=== PATIENT | male | born 1990 | race Caucasian/White ===

== ENCOUNTER 2018-12-29 22:40 | Emergency (ER) | payer SELFPAY ==
[~2018-12-29] VITALS: Ht 182.9 cm; Wt 77.3 kg
[2018-12-29 23:08] VITALS: TEMP 98.7
[2018-12-29 23:49] LABS: BASO # 0.1 (0.0-0.2); BASO % 0.3 % (0.0-2.0); GRAN # 16.3 (1.4-6.5); GRAN % 83.9 % (42.2-75.2); HEMATOCRIT 50.9 % (42.0-52.0); HEMOGLOBIN 17.4 g/dl (13.5-18.0); LYMPH # 1.5 (1.2-3.4); LYMPH % 7.8 % (20.0-51.0); MEAN CELL VOLUME 89 fl (80.0-100.0); MEAN CORPUSCULAR HEMOGLOBIN 30 pg (27.0-31.0); MEAN CORPUSCULAR HGB CONC 34 g/dl (33.0-37.0); MONO # 1.5 (0.1-0.6); MONO % 7.6 % (1.7-9.3); PLATELET COUNT 295 K/mm3 (130-400); RED BLOOD COUNT 5.72 M/mm3 (4.20-5.60); REDCELL DISTRIBUTION WIDTH-CV 12.1 % (11.5-14.5)
[2018-12-29 23:59] LABS: ALANINE AMINOTRANSFERASE 7 U/L (21-72); ALBUMIN 5.4 gm/dL (3.5-5.0); ALKALINE PHOSPHATASE 65 U/L (50-136); ANION GAP 16 mmol/L (7-16); AST,SGOT 33 U/L (15-37); BLOOD UREA NITROGEN 30 mg/dL (9-20); CALCIUM 10.5 mg/dL (8.4-10.2); CARBON DIOXIDE 23 mmol/L (22-30); CHLORIDE 100 mmol/L (98-107); CREATININE, serum 1.15 mg/dL (0.66-1.25); GLUCOSE 102 mg/dL (74-106); POTASSIUM 4.4 mmol/L (3.4-5.0); SODIUM 139 mmol/L (137-145); TOTAL PROTEIN 10.2 gm/dL (6.4-8.2)
[2018-12-30] LABS: ACETAMINOPHEN < 10 ug/mL (10-30); ALCOHOL(ethanol),MEDICAL < 10 mg/dL; SALICYLATE < 1.0 mg/dL
[2018-12-30 00:24] LABS: CREATINE KINASE 182 U/L (55-170)
[2018-12-30 00:28] LABS: TSH w REFLEX 0.717 uIU/mL (0.465-4.680)
[2018-12-30 00:36] LABS: TRICYCLIC ANTIDEPRESS URINE NEGATIVE
[2018-12-30 00:46] LABS: COLLECTION METHOD CLEAN CATCH
[2018-12-30 00:56] LABS: MUCOUS Present /lpf; PH 5 (5-8); SQUAMOUS EPITHELIAL None Seen /hpf; URINE APPEARANCE Hazy; URINE BACTERIA None Seen /hpf; URINE BILIRUBIN Negative (NEGATIVE); URINE BLOOD Negative (NEGATIVE); URINE COLOR Amber; URINE GLUCOSE Negative (NEGATIVE); URINE KETONE 1+ (NEGATIVE); URINE LEUKOCYTE ESTERASE Negative (NEGATIVE); URINE NITRATE Negative (NEGATIVE); URINE PROTEIN(semi-quant) 2+ (NEGATIVE)
[2018-12-30 01:05] VITALS: BP 139/78
[2018-12-30 03:02] VITALS: PULSE 98
== END 2018-12-30 03:36 | disposition home or self-care (01) ==
LOC: COL.ER 22:40
PROVIDERS: Nurse Practitioner
DX: E86.0 Dehydration (principal); R41.82 Altered mental status, unspecified; F19.10 Other psychoactive substance abuse, uncomplicated; F17.210 Nicotine dependence, cigarettes, uncomplicated